=== PATIENT | female | born 1995 | race Caucasian/White ===

== ENCOUNTER 2018-10-01 21:00 | Emergency (ER) | payer BC ==
[~2018-10-01] VITALS: Ht 165.1 cm; Wt 69.9 kg
--- NOTE | 2018-10-01 21:16 | NUR ---
first contact with pt. pt c/o bilateral lower abd pain with nausea after having sex about 30 min ago. pt states that "I think my IUD is dislodged after sex approx 30 min ago" pt's aox4. resps even and unlabored. pt denies v/d/rizo. bp/spo2 monitors in place. call light within reach. awaiting edmd assessment at this time.
--- NOTE | 2018-10-01 21:25 | NUR ---
edmd at bedside to assess at this time.
--- NOTE | 2018-10-01 21:40 | NUR ---
PT AMB TO BR AND BACK TO ROOM WITH SETADY GAIT. UA SENT.
[2018-10-01] MEDS ORDERED: MORPHINE SULFATE 4 MG/ML, 1ML ONE (21:41)
[2018-10-01] MEDS ORDERED: ONDANSETRON 2MG/ML, 2ML ONE (21:41)
[2018-10-01] MEDS ORDERED: MORPHINE SULFATE 4 MG/ML, 1ML IVPush PRN (22:00)
[2018-10-01] MEDS ORDERED: ONDANSETRON 2MG/ML, 2ML IVPush ONE (22:00)
[2018-10-01 22:05] LABS: MICROSCOPIC NOT IND
[2018-10-01 22:07] LABS: CULTURE INDICATED? NO
--- NOTE | 2018-10-01 22:13 | NUR ---
PT MEDICATED PER EMAR. PT TOLERATED WELL. PT'S AOX4. RESPS EVEN AND UNLABORED.
[2018-10-01 22:42] LABS: BASOPHILS # (AUTO) 0.02 x10^3/uL (0-0.1); BASOPHILS % (AUTO) 0 % (0-1); EOSINOPHILS # (AUTO) 0.14 x10^3/uL (0-0.4); EOSINOPHILS % (AUTO) 1 % (1-7); LYMPHOCYTES # (AUTO) 2.82 x10^3/uL (1-3.4); LYMPHOCYTES % (AUTO) 23 % (22-44); MD NO; MEAN CORPUSCULAR HEMOGLOBIN 32.4 pg (27.0-34.8); MEAN CORPUSCULAR HGB CONC 33.8 g/dL (32.4-35.8); MEAN CORPUSCULAR VOLUME 95.8 fL (80-100); MEAN PLATELET VOLUME 9.7 fL (7.4-10.4); MONOCYTES # (AUTO) 0.97 x10^3/uL (0.2-0.8); MONOCYTES % (AUTO) 8 % (2-9); NEUTROPHILS # (AUTO) 8.35 x10^3/uL (1.8-6.8); NEUTROPHILS % (AUTO) 68 % (42-75); PLATELET COUNT 278 x10^3/uL (130-400); RED BLOOD COUNT 4.42 x10^6/uL (3.82-5.3); RED CELL DISTRIBUTION WIDTH 12.6 % (9.6-15.2)
[2018-10-01 22:56] LABS: ALBUMIN 4.2 g/dL (3.4-5.0); ANION GAP 6 mmol/L (5-15); CALCIUM 8.5 mg/dL (8.5-10.1); CHLORIDE 108 mmol/L (98-107)
[2018-10-01 23:02] LABS: ALANINE AMINOTRANSFERASE 22 U/L (12-78); ALKALINE PHOSPHATASE 43 U/L (45-117); BILIRUBIN,TOTAL 0.2 mg/dL (0.2-1.0); CREATININE 0.67 mg/dL (0.55-1.02); TOTAL PROTEIN 7.7 g/dL (6.4-8.2)
--- NOTE | 2018-10-01 23:09 | NUR ---
PT TO CT NOW.
--- NOTE | 2018-10-01 23:25 | NUR ---
PT BACK TO ROOM FROM CT.
[2018-10-01] MEDS ORDERED: OMNIPAQUE 350 MG/ML, 100ML BOTTLE ONE (23:33)
--- NOTE | 2018-10-01 23:39 | NUR ---
PT'S PAIN LEVEL DECREASED TO 3/10 AT THIS TIME. PT DENIES NAUSEA WELL. PT'S AOX4. RESPS EVEN AND UNLABORED. BP/SPO2 MONITORS IN PLACE. CALL LIGHT WITHIN REACH.
[2018-10-02 00:18] VITALS: BP 92/45
--- NOTE | 2018-10-02 00:20 | NUR ---
PT GIVEN DC INSTRUCTIONS. PT AMB TO DC WITH STEADY GAIT. PT GIVEN WATER AND NO ACUTE DISTRESS AT DC. PT'S AOX4. RESPS EVEN AND UNLABORED.
== END 2018-10-02 00:20 | disposition home or self-care (01) ==
LOC: ED 23:07
DX: N83.11 Corpus luteum cyst of right ovary (principal)
CPT/HCPCS: 36415; 74177; 80053; 81003; 83690; 84703; 85025; 96374; 96375; 99284; J2405; Q9967